=== PATIENT | female | born 1955 | race Native Hawaiian/Other Pacific Islander ===

== ENCOUNTER 2019-07-07 11:51 | Outpatient (CLI) | payer MEDICARE, OTHER, SELFPAY ==
--- NOTE | ~2019-07-07 | DEXA_ITS ---
Bone Density Report Name: Flavia Beltran Age: 64 Sex: Female Ethnicity: Date of : 1955 Indication: postmenopausal; Referring Provider: Marina, Jesus Manuel Study: Bone densitometry was performed. Exam Date: July 07, 2019 Accession number: [id number] Bone Density: Region BMD T-score Z-score Classification AP Spine (L1-L4) 0.712 -3.0 -1.3 Osteoporosis Femoral Neck (Left) 0.576 -2.5 -0.9 Osteoporosis Total Hip (Left) 0.772 -1.4 -0.2 Osteopenia Total Hip Bilateral Avg 0.768 -1.5 -0.2 Osteopenia Femoral Neck (Right) 0.580 -2.4 -0.9 Osteopenia Total Hip (Right) 0.762 -1.5 -0.2 Osteopenia World Health Organization criteria for BMD impression classify patients as: Normal (T-score at or above -1.0), Osteopenia (T-score between -1.0 and -2.5), or Osteoporosis (T-score at or below -2.5). 10-year Fracture Risk: FRAX not reported because: Some T-score for Spine Total or Hip Total or Femoral Neck at or below -2.5 Clinical Information Provided by Patient: Has used the following medications: Vitamin D, Calcium Patient maximum height was 60 Menopause Age: 49 Does not regularly consume dairy products Drinks caffeinated beverages Onset of menses at age 13 Number of children 2 Impression: The patient has osteoporosis, based on the Total Spine T-score. Discussion: INCREASED RISK OF FRACTURE. BONE DENSITY IS UNDESIRABLY LOW AT ONE OR MORE SKELETAL SITES, CONSISTENT WITH POSTMENOPAUSAL OSTEOPOROSIS. This patient's lowest T-score meets the World Health Organization's (WHO) criteria for osteoporosis at one or more sites (T-score -2.5 or below). In untreated patients, the risk of osteoporotic fracture increases approximately two-fold for each 1.0 SD decrease in T-score. Low bone density is not the only risk factor for fracture; also consider factors such as patient's age, frailty or poor health, risk of falling, risk of injury, previous osteoporotic fracture, family history of osteoporosis, cigarette smoking, low body weight, etc. Not everyone with low bone mineral density has osteoporosis; osteomalacia and other metabolic bone disorders should also be considered. Patients who have osteoporosis should be evaluated for specific diseases and conditions (secondary causes) that may cause or contribute to bone loss. The [place] [employer]ocrin[employer] (AACE) and National Osteoporosis Foundation (NOF) recommend pharmacologic intervention for all postmenopausal women whose T-score is in this range. The patient should follow a healthful lifestyle (good nutrition with adequate calcium and vitamin D, and appropriate weight-bearing exercise). Follow-Up: Consider a repeat BMD and Vertebral Fracture Assessment (VFA) exam in 2 years or sooner if medically necessary, to reassess this patient's status. Reported by:
== END 2019-07-07 11:52 | disposition home or self-care (01) ==
LOC: ANHIMG 12:07
PROVIDERS: Visit Provider Student in an Organized Health Care Education/Training Program
DX: Z78.0 Asymptomatic menopausal state (principal); M85.89 Other specified disorders of bone density and structure, multiple sites; M81.0 Age-related osteoporosis without current pathological fracture
CPT/HCPCS: 77080

== ENCOUNTER 2020-10-31 09:24 | Outpatient (CLI) | payer MEDICARE, OTHER, SELFPAY ==
--- NOTE | ~2020-10-31 | MM_ITS ---
EXAMINATION: MM screening rod BI w thuy HISTORY: Screening mammogram, family history of breast cancer in her sister. TECHNIQUE: Craniocaudal and mediolateral oblique 3-D tomosynthesis images were obtained and synthetic 2-D images were generated. CAD analysis was submitted and interpreted. COMPARISON: No prior mammogram is available for comparison at this institution. BREAST PARENCHYMAL COMPOSITION: The breasts are heterogeneously dense, which may obscure small masses . FINDINGS: There is no evidence of suspicious mass, calcification, or architectural distortion to sugg est malignancy in either breast. IMPRESSION: 1. No mammographic evidence of malignancy. 2. Recommend routine screening mammography in one year. BI-RADS Category 1: Negative Reviewed, dictated and finalized at location A.
== END 2020-10-31 09:25 | disposition home or self-care (01) ==
LOC: ANHIMG 09:27
PROVIDERS: PCP Student in an Organized Health Care Education/Training Program; Visit Provider Student in an Organized Health Care Education/Training Program
DX: Z12.31 Encounter for screening mammogram for malignant neoplasm of breast (principal)
CPT/HCPCS: 77063; 77067

== ENCOUNTER 2021-12-19 17:10 | Outpatient (CLI) | payer MEDICARE, OTHER, SELFPAY ==
--- NOTE | ~2021-12-19 | DEXA_ITS ---
Bone Density Report Name: MAGDALENA SANCHEZ Age: 66 Sex: Female Ethnicity: Date of : 1955 Indication: postmenopausal; screening for osteoporosis; height loss; Referring Provider: CHEPE, LEDY Study: Bone densitometry was performed. Exam Date: December 19, 2021 Accession number: [id number] Bone Density: Region BMD T-score Z-score Classification AP Spine(L1-L4) 0.821 -2.1 -0.1 Osteopenia Femoral Neck (Left) 0.591 -2.3 -0.7 Osteopenia Total Hip (Left) 0.774 -1.4 0.0 Osteopenia Femoral Neck (Right) 0.579 -2.4 -0.8 Osteopenia Total Hip (Right) 0.785 -1.3 0.1 Osteopenia Total Hip Mean 0.780 -1.4 0.1 Osteopenia World Health Organization criteria for BMD impression classify patients as: Normal (T-score at or above -1.0), Osteopenia (T-score between -1.0 and -2.5), or Osteoporosis (T-score at or below -2.5). 10-year Fracture Risk(1): Major Osteoporotic Fracture 7.3% Hip Fracture 1.5% Reported Risk Factors: [place] (), Neck BMD=0.579, BMI=24.6 (1) FRAX(R) Version 3.08. Fracture probability calculated for an untreated patient. Fracture probability may be lower if the patient has received treatment. Clinical Information Provided by Patient: Has used the following medications: Vitamin D, Calcium Patient maximum height was 61 Menopause Age: 49 Drinks caffeinated beverages Onset of menses at age 16 Number of children 2 Impression: The patient has low bone mass, based on the Right Femoral Neck T-score. The patient has an estimated ten-year risk of hip fracture of 1.5% and an estimated ten-year risk of major fracture of 7.3%, based on the WHO FRAX algorithm. Discussion: BONE DENSITY IS LOW AT ONE OR MORE SKELETAL SITES. This patient's lowest T-score is low at one or more skeletal sites. It meets the World Health Organization's (WHO) criteria for ?low bone mass? (T-score between -1.0 and -2.5). The patient's 10-year risk of fracture as calculated by FRAX is less than the threshold where pharmacological therapy is recommended by the National Osteoporosis Foundation (NOF). However, all treatment decisions require clinical judgment and consideration of individual patient factors, including patient preferences, comorbidities, previous drug use, risk factors not captured in the FRAX model (e.g., frailty, falls, vitamin D deficiency, increased bone turnover, interval significant decline in bone density) and possible under or overestimation of fracture risk by FRAX. The patient should follow a healthful lifestyle (good nutrition with adequate calcium and vitamin D, and appropriate weight-bearing exercise). Follow-Up: Consider repeating this study in 2 to 3 years to reassess this patient's status, or sooner if there is some new clinical indication. Reported by: DAKOTAH on
--- NOTE | ~2021-12-19 | MM_ITS ---
EXAMINATION: MM screening rod BI w thuy HISTORY: Screening TECHNIQUE: Craniocaudal and mediolateral oblique 3-D tomosynthesis images were obtained and synthetic 2-D images were generated. CAD analysis was submitted and interpreted. COMPARISON: 10/31/2020 BREAST PARENCHYMAL COMPOSITION: There are scattered areas of fibroglandular density. FINDINGS: There is no evidence of suspicious mass, calcification, or architectural distortion to sugg est malignancy in either breast. There has been no suspicious interval change. IMPRESSION: 1. No mammographic evidence of malignancy. 2. Recommend routine screening mammography in one year. BI-RADS Category 1: Negative Reviewed, dictated and finalized at location A.
== END 2021-12-19 17:11 | disposition home or self-care (01) ==
LOC: ANHIMG 17:11
PROVIDERS: PCP Student in an Organized Health Care Education/Training Program; Visit Provider Student in an Organized Health Care Education/Training Program
DX: Z12.31 Encounter for screening mammogram for malignant neoplasm of breast (principal); M81.0 Age-related osteoporosis without current pathological fracture; M85.88 Other specified disorders of bone density and structure, other site; M85.852 Other specified disorders of bone density and structure, left thigh; M85.851 Other specified disorders of bone density and structure, right thigh
CPT/HCPCS: 77063; 77067; 77080

== ENCOUNTER 2023-05-13 08:55 | Outpatient (CLI) | payer MEDICARE, OTHER, SELFPAY ==
--- NOTE | ~2023-05-13 | MM_ITS ---
EXAMINATION: MM screening rod BI w thuy HISTORY: Screening mammogram TECHNIQUE: Craniocaudal and mediolateral oblique 3-D tomosynthesis images were obtained and synthetic 2-D images were generated. CAD analysis was submitted and interpreted. COMPARISON: 12/19/2021, 10/31/2020 bilateral screening mammogram examinations BREAST PARENCHYMAL COMPOSITION: The breasts are heterogeneously dense, which may obscure small masses . FINDINGS: There is no evidence of suspicious mass, calcification, or architectural distortion to sugg est malignancy in either breast. There has been no suspicious interval change. IMPRESSION: 1. No mammographic evidence of malignancy. 2. Recommend routine screening mammography in one year. BI-RADS Category 1: Negative Reviewed, dictated and finalized at location A. [facility] DIRECTOR
== END 2023-05-13 08:56 | disposition home or self-care (01) ==
LOC: ANHIMG 08:57
PROVIDERS: PCP Student in an Organized Health Care Education/Training Program; Visit Provider Student in an Organized Health Care Education/Training Program
DX: Z12.31 Encounter for screening mammogram for malignant neoplasm of breast (principal)
CPT/HCPCS: 77063; 77067

== ENCOUNTER 2023-12-23 13:39 | Outpatient (CLI) | payer MEDICARE, OTHER, SELFPAY ==
--- NOTE | ~2023-12-23 | DEXA_ITS ---
Bone Density Report Name: MAGDALENA SANCHEZ Age: 68 Sex: Female Ethnicity: Date of : 1955 Indication: osteopenia; height loss; Referring Provider: CHEPE, LEDY Study: Bone densitometry was performed. Exam Date: December 23, 2023 Accession number: [id number] Bone Density: Region BMD T-score Z-score Classification AP Spine(L1-L4) 0.866 -1.6 0.4 Osteopenia Femoral Neck (Left) 0.591 -2.3 -0.6 Osteopenia Total Hip (Left) 0.756 -1.5 0.0 Osteopenia Femoral Neck (Right) 0.629 -2.0 -0.2 Osteopenia Total Hip (Right) 0.824 -1.0 0.5 Normal Total Hip Mean 0.790 -1.3 0.3 Osteopenia World Health Organization criteria for BMD impression classify patients as: Normal (T-score at or above -1.0), Osteopenia (T-score between -1.0 and -2.5), or Osteoporosis (T-score at or below -2.5). 10-year Fracture Risk(1): Major Osteoporotic Fracture 7.3% Hip Fracture 1.6% Reported Risk Factors: [place] (), Neck BMD=0.591, BMI=25.6 (1) FRAX(R) Version 3.08. Fracture probability calculated for an untreated patient. Fracture probability may be lower if the patient has received treatment. Previous Exams: Region Exam Age BMD T-score BMD Change BMD Change Date g/cm2 vs Baseline vs Previous AP Spine (L1-L4) 12/23/2023 68 0.866 -1.6 0.153 (21.5%)# 0.044 (5.4%)* 12/19/2021 66 0.821 -2.1 0.109 (15.3%)# 0.109 (15.3%)# 07/07/2019 64 0.712 -3.0 Total Hip(Left) 12/23/2023 68 0.756 -1.5 -0.016 (-2.0%) -0.018 (-2.3%) 12/19/2021 66 0.774 -1.4 0.002 (0.3%) 0.002 (0.3%) 07/07/2019 64 0.772 -1.4 Total Hip(Right) 12/23/2023 68 0.824 -1.0 0.062 (8.1%)* 0.039 (4.9%)* 12/19/2021 66 0.785 -1.3 0.023 (3.0%) 0.023 (3.0%) 07/07/2019 64 0.762 -1.5 *Denotes significance at 95% confidence level, LSC for AP Spine = 0.022 g/cm2, LSC for Total Hip = 0.027 g/cm2 # Denotes dissimilar scan types or analysis methods Clinical Information Provided by Patient: Has used the following medications: Vitamin D, Calcium Patient maximum height was 62.0 Menopause Age: 49 Drinks caffeinated beverages Onset of menses at age 14 Number of children 2 Impression: The patient has low bone mass, based on the Left Femoral Neck T-score. The patient has an estimated ten-year risk of hip fracture of 1.6% and an estimated ten-year risk of major fracture of 7.3%, based on the WHO FRAX algorithm. No significant bone loss was o
== END 2023-12-23 13:40 | disposition home or self-care (01) ==
LOC: ANHIMG 13:41
PROVIDERS: PCP Student in an Organized Health Care Education/Training Program; Visit Provider Student in an Organized Health Care Education/Training Program
DX: M85.89 Other specified disorders of bone density and structure, multiple sites (principal); Z78.0 Asymptomatic menopausal state
CPT/HCPCS: 77080

== ENCOUNTER 2024-12-10 09:01 | Outpatient (CLI) | payer MEDICARE, OTHER, SELFPAY ==
--- NOTE | ~2024-12-10 | MM_ITS ---
EXAMINATION: MM screening rod BI w thuy HISTORY: Screening TECHNIQUE: Craniocaudal and mediolateral oblique 3-D tomosynthesis images were obtained and synthetic 2-D images were generated. CAD analysis was submitted and interpreted. COMPARISON: Comparison to multiple prior studies sequentially, with oldest reviewed study dated 10/31. BREAST PARENCHYMAL COMPOSITION: Not dense: There are scattered areas of fibroglandular density. FINDINGS: There is no evidence of suspicious mass, calcification, or architectural distortion to sugg est malignancy in either breast. There has been no suspicious interval change. IMPRESSION: 1. No mammographic evidence of malignancy. 2. Recommend routine screening mammography in one year. BI-RADS Category 1: Negative Reviewed, dictated and finalized at location A.
--- OUTSIDE RECORDS SUMMARY | 2024-12-10 09:04 | XMS_ITS | Encounter Summary ---
Author Organization [facility] Address [address] [place] [id number] Care Team Providers Care Material Yard Clerk Name Role Phone Jesus Manuel Arriaga DO Primary Care Provider + Encounter Details Date Type Department Care Team (Latest Contact Info) Description 11/24/2024 Scan HEALTH INFO [facility] Scanned, Doc Med Group Social History Tobacco Use Types Packs/Day Years Used Date Smoking Tobacco: Never Smokeless Tobacco: Never Comments:No counseling requi red. Alcohol Use Standard Drinks/Week Comments Not Currently 0 (1 standard drink = 0.6 oz pur e alcohol) AUDIT-C Answer Date Recorded Frequency of Alcohol Consumption Monthly or less 06/02/2019 Average Number of Drinks 1 or 2 020 Frequency of Binge Drinking Never 05/18 PHQ-2 Answer Date Recorded Patient Health Questionnaire-2 Score 0 09/01/2024 Comments No Sex and Gender Information Value Date Recorded Sex Assigned at Female 09/01/2024 1:09 PM CDT Legal Sex Female 7:20 PM CDT Gender Identity Female 09/01/2024 1:09 PM CDT Sexual Orientation Not on file documented as of this encounter Plan of Treatment Upcoming Encounters Date Type Department Care Team (Late st Contact Info) Description 01/05/2025 8:00 AM CDT Laboratory Only [facility] Family & Internal Medicine [address] [phone] Jesus Manuel Arriaga DO [facility] [place] [address] 01/12/2025 8:00 AM CDT Office Visit [facility] Family & Internal Medicine - [address] [phone] Jesus Manuel Arriaga DO [address] [place] [id number] documented as of this encounter Visit Diagnoses Not on filedocumented in this encounter Additional Health Concerns Assessment Noted Time PHQ-9 Depression Total Score: 0 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
--- OUTSIDE RECORDS SUMMARY | 2024-12-10 09:04 | XMS_ITS | Clinical Summary ---
Author Organization [facility] Address [address] [place] [address] Care Team Providers Care Vp Account Director Name Role Phone Jesus Manuel Arriaga DO Primary Care Provider + Allergies No known active allergies Medications aspirin EC (ASPIRIN EC) 81 MG tabletIndication s:Type 2 diabetes mellitus without complication, without long-term current use of insulin ([facility]) Take 1 tablet (81 mg total) by mouth daily. 90 tablet 1 07/12/19 21 Active Cholecalciferol (VITAMIN D) 125 MCG (5000 UT) Cap Take 1 capsule by mouth daily. 05/23/19 22 Active calcium carb-cholecalcif david (CALTRATE+D) 600-10 MG-MCG Tab tablet 1 tablet daily. Act zion SODIUM FLUORIDE 5000 PPM 1.1 % Paste see administration instructions. 08/26/19 25 Active SITagliptin-metF ORMIN HCl (JANUMET) 50-1000 MG TabIndications:T ype 2 diabetes mellitus without complication, without long-term current use of insulin ([facility]) Take 1 tablet by mouth 2 (two) times daily with meals. 180 tablet 3 09/02/19 25 Active omeprazole (PRILOSEC) 40 MG capsuleIndicatio ns:Gastroesophag eal reflux disease, unspecified whether esophagitis present Take 1 capsule (40 mg total) by mouth daily. 90 capsule 3 09/02/19 25 Active lisinopril (PRINIVIL) 20 MG tabletIndication s:Primary hypertension Take 1 tablet (20 mg total) by mouth daily. 90 tablet 3 09/02/19 25 Active empagliflozin (JARDIANCE) 10 MG tabletIndication s:Type 2 diabetes mellitus without complication, without long-term current use of insulin ([facility]) Take 1 tablet (10 mg total) by mouth daily. 90 tablet 3 09/02/19 25 Active atorvastatin (LIPITOR) 80 MG tabletIndication s:Type 2 diabetes mellitus without complication, without long-term current use of insulin ([facility]) Take 1 tablet (80 mg total) by mouth nightly at bedtime. 90 tablet 3 09/02/19 25 Active alendronate (FOSAMAX) 70 MG tabletIndication s:Age-related osteoporosis without current pathological fracture Take 1 tablet (70 mg total) by mouth every 7 days. 12 tablet 3 09/02/19 25 Active meloxicam (MOBIC) 15 MG tabletIndication s:Chronic left shoulder pain,Chronic elbow pain, left Take 1 tablet (15 mg total) by mouth daily. 30 tablet 2 09/02/19 25 Active FREESTYLE LITE test stripIndications :Type 2 diabetes mellitus without complication, without long-term current use of insulin ([facility]) USE TO TEST ONCE DAILY 100 strip 1 11/16/19 25 Active FREESTYLE LITE test stripIndications :Type 2 diabetes mellitus without complication, without long-term current use of insulin ([facility]) USE TO TEST ONCE DAILY 100 strip 1 04/28/20 24 025 Discontin ued(Reord er) Active Problems Problem Noted Date Diagnosed Date Hansen's esophagus 07/02/2023 Screening for colon cancer 02/09/2023 Overview (02/09/2023): Added automatically from request for surgery [id number] Age-related osteoporosis wit hout current pathological fracture 07/12/2020 Myalgia 06/02/2019 Pure hypercholesterolemia 10/01/2013 Overview (07/12/2020): PURE HYPERCHOLESTEROLEM Type 2 diabetes mellitus ([facility]) Hypertension GERD (gastroesophageal reflux disease) Resolved Problems Problem Noted Date Diagnosed Date Resolved Date Lumbar radiculopathy 07/02/2023 024 Vitamin D deficiency 07/02/2023 024 Encounters Date Type Department Care Team Description 11/24/2024 Scan HEALTH INFO SRVCS Scanned, [facility] 11/15/[address] [address] Jesus Manuel Arriaga, DO Medication Request 10/13/2024 8:20 AM CDT Office Visit [address] [address] Jesus Manuel Arriaga, DO Shoulder Pain (The patient states she feels the left shoulder pain is improving. ); Lab Results (The patient also presents for follow up on lab results. ) 10/13/2024 Travel 10/06/2024 8:20 AM CDT Laboratory Only [address] [address] Jesus Manuel Arriaga, 10/06/2024 - 10/06/2024 11:59 PM CDT Hospital Encounter [facility] [address] [place] [address] Jesus Manuel Arriaga, DO Discharge Disposition: Home or Self Care (Routine Discharge) 10/06/2024 Travel 09/26/2024 Scan HEALTH INFO SRVCS Scanned, [facility] 09/19/2024 Scan HEALTH INFO SRVCS Scanned, [facility] from Last 3 Months Immunizations Immunization Administration Dates Next Due Fluzone 6 Months+ Quad (0.5 mL Prefilled Syringe) 03/04/2019 Fluzone High Dose (IIV, triv alent, 0.5mL) 02/18/2024 Fluzone High Dose - >Age 65 (Prefilled Syringe) 05/22/2023,02/27/2022,02/20/2020 Influenza Adult (Generic) 05/22/2023,,2021,2018 PFIZER COVID-19 (ORIGINAL FORMULATION, PURPLE CAP) mRNA, LNP-S, PF, 30 MCG/0.3 ML DOSE 2021,08/20/2020,07/27/2020 Pneumococcal (Pneumovax 23) 01/22/2021 Pneumococcal (Prevnar 13) 06/02/2019 Tdap (Boostrix) 06/02/2019 Social History Tobacco Use Types Packs/Day Years Used Date Smoking Tobacco: Never Smokeless Tobacco: Never Tobacco Cessation:Counseling Given: Yes Comments:No counseling required. Alcohol Use Standard Drinks/Week Comments Not Currently [...] PM CDT Sexual Orientation Not on file Last Filed Vital Signs Vital Sign Reading Time Taken Comments Blood Pressure 102/56 10/13/2024 8:25 AM CDT Pulse 102 10/13/2024 8:25 AM CDT Temperature 36.6 C (97.9 F) 10/13/2024 8:25 AM CDT Respiratory Rate 16 10/13/2024 8:25 AM CDT Oxygen Saturation 97% 10/13/2024 8:25 AM CDT Inhaled Oxygen Concentration - - Weight 59.1 kg (130 lb 3.2 oz) 10/13/2024 8:25 A M CDT Height 152.4 cm (5') 10/13/2024 8:25 AM CDT Body Mass Index 25.43 10/13/2024 8:25 AM CDT Plan of Treatment Upcoming Encounters Date Type Department Care Team (Late st Contact Info) Description 01/05/2025 8:00 AM CDT Laboratory Only [facility] Medical [facility] Family & Internal Medicine [address] [phone] Jesus Manuel Arriaga DO [address] [place] [phone] 01/12/2025 8:00 AM CDT Office Visit [facility] [place] [id number] [place] [address] Jesus Manuel Arriaga, [address] [place] [phone] Health Maintenance Due Date Last Done Comments Diabetes: Retinopathy Eye Exam 11/06/2016 11/06/2014 EGD-Hansen's Surveillance 03/29/2018 03/29/2015, Annual Medicare Wellness Visit 2019 Mammogram Screening 05/13/2024 05/13/2023, 12/19/2021, 10/31/2020, Additional history exists COVID-19 Vaccine ( season) 2025 05/22/2023, 2021, 08/20/2020, Additional history exists Postponed from 01/17/2024 (Going to Outside Clinic) Hemoglobin A1C 03/03/2025 09/01/2024, 07/2023, 10/05/2023, Additional history exists Kidney Health Evaluation 08/25/2025 08/25/2024 Lipid Panel 08/25/2025 08/25/2024, 12/2023, 08/08/2021, Additional history exists Zoster Vaccines (1 of 2) 09/01/2025 Pos tponed from 2004 (Going to Outside Clinic) RSV Immunization or 60+ Years (1 - 1-dose 75+ series) 2029 DTaP, Tdap and Td Vaccines (2 - Td or Tdap) 06/02/2029 06/02/2019 Colorectal Cancer Screening Colonoscopy (10 Years) 02/20/2033 02/20/2023 Pneumococcal Vaccine: 50+ Years Completed 01/22/2021, 06/02/2019 Hepatitis C Completed 06/25/2023 Dexa Scan (General) Completed 12/23/2023, 12/19/2021, 12/19/2021, Additional history exists PHQ-2 (Physician [place]) Completed 09/01/2024 Meningococcal B Vaccine Aged Out No l onger eligible based on patient's age to complete this topic Meningococcal Vaccine Aged Out No beck fany eligible based on patient's age to complete this topic RSV Immunizations Under 20 Months Aged Out No longer eligible based on patient's age to complete this topic Procedures Procedure Name Priority Date/Time Associated Diagnosis Comments COLLECTION VENOUS BLOOD VENIPUNCTURE Routine 10/06/2024 8:28 AM CDT Anemia, unspecified type FOLIC ACID SERUM Routine 10/06/2024 8:28 AM CDT Anemia, unspecified type SOLUBLE TRANSFERRIN RECEPTOR Routine 10/06/2024 8:18 AM CDT Anemia, unspecified type CBC W/DIFF AUTOMATED Routine 10/06/2024 8:18 AM CDT Anemia, unspecified type VITAMIN B-12 Routine 10/06/2024 8:18 AM CDT Anemia, unspecified type RETICULOCYTE CT, AUTO Routine 10/06/2024 8:18 AM CDT Anemia, unspecified type HAPTOGLOBIN, QUANT Routine 10/06/2024 8: 18 AM CDT Anemia, unspecified type LDH, LACTATE DEHYDROGENASE Routine 10/06/2024 8:18 AM CDT Anemia, unspecified type FERRITIN Routine 10/06/2024 8:18 AM CDT Anemia, unspecified type IRON SAT PANEL (IRON,IBC,%SAT) Routine 10/06/2024 8:18 AM CDT Anemia, unspecified type HEMOGLOBIN, GLYCOSYLATED Routine 09/01/2024 Type 2 diabetes mellitus without complication, without long-term current use of insulin (CMS/HCC HHS/HCC) LIPID PANEL Routine 08/25/2024 7:57 AM CDT Type 2 diabetes mellitus without complication, without long-term current use of insulin (CMS/HCC HHS/HCC) Primary hypertension Pure hypercholesterolemia BONE DENSITY GENERIC (SCAN ORDER) 12/23/2023 HEPATITIS C ANTIBODY Routine 06/25/2023 1:11 PM 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 Co de Phone Number [facility] [address] [place] [address], * (ABNORMAL) SOLUBLE TRANSFERRIN RECEPTOR (10/06/2024 8:18 AM CDT) SOLUBLE TRANSFERRIN RECEPTOR 3.00(H) 0.76 - 1.76 mg/L [employer] [facility] 10/06/2024 8:18 AM CDT 10/07/2024 7:13 AM CDT Narrative Resulting Agency Comment Performing Organization Information: Site ID: [id number] Name: [facility], Address: [address] [place] [id number] Director: Eloina Rogel MD,PhD,FRANCISCA us Jesus Manuel Arriaga DO LABORATORY Final Re sult [facility] [address] [address], [place] * IRON SAT PANEL (IRON,IBC,%SAT) (10/06/2024 8:18 AM CDT) IRON 65 50 - 170 MCG/DL 10/06/2024 3:49 PM CDT [facility] IRON BINDING CAPACITY 429 250 - 450 MCG/DL 10/06/2024 3:49 PM CDT [facility] IRON SATURATION 15 % 3:49 PM CDT [facility] Comment:REFERENCE RANGE NOT ESTABLISHED 10/06/2024 8:18 AM CDT Jesus Manuel Arriaga DO LABORATORY Final Re sult Performing Organization Address [facility]/ZIP Co de Phone Number [address] [address], [place] [phone] * VITAMIN B-12 (10/06/2024 8:18 AM CDT) VITAMIN B12 S/P/B 346 193 - 986 PG/ML 10/06/2024 3:49 PM CDT [facility] 10/06/2024 8:18 AM CDT Jesus Manuel Arriaga DO LABORATORY Final Re sult Performing Organization Address City/[facility]/ZIP Co de Phone Number [address] [address], [place] [phone] * (ABNORMAL) RETICULOCYTE CT, AUTO (10/06/2024 8:18 AM CDT) RETICULOCYTE COUNT 3.3(H) 0.6 - 2.3 % 10/06/2024 5:36 PM CDT [facility] ABSOLUTE RETICULOCYTE 0.15(H) 0.02 - 0.10 x10'6/uL 10/06/2024 5:36 PM CDT [facility] IMMATURE RETIC FRACTION 18.9(H) 3.0 - 15.9 % 10/06/2024 5:36 PM CDT [facility] RETIC HGB 29.1 28.0 - 35.0 PG 10/06/2024 5:36 PM CDT [facility] 10/06/2024 8:18 AM CDT Jesus Manuel Arriaga DO LABORATORY Final Re sult Performing Organization Address [facility] Co de Phone Number [facility] [address] [place] [address], [place] [phone] * HAPTOGLOBIN, QUANT (10/06/2024 8:18 AM CDT) HAPTOGLOBIN 161.0 30.0 - 200.0 MG/DL 10/06/2024 5:42 PM CDT [facility] 10/06/2024 8:18 AM CDT Jesus Manuel Arriaga DO LABORATORY Final Re sult Performing Organization Address [facility] de Phone Number [facility] [address] [place] [address], [place] [phone] * LDH, LACTATE DEHYDROGENASE (10/06/2024 8:18 AM CDT) LDH 179 84 - 246 UNITS/L 10/06/2024 5:41 PM CDT [facility] 10/06/2024 8:18 AM CDT Jesus Manuel Arriaga DO LABORATORY Final Re sult Performing Organization Address [facility] Co de Phone Number [facility] [address] [place] [address], [place] [phone] * (ABNORMAL) CBC W/DIFF AUTOMATED (10/06/2024 8:18 AM CDT) [facility] WBC 5.55 4.00 - 10.80 x10'3/uL 10/06/2024 3:21 PM CDT [facility] RBC 4.72 4.10 - 5.40 x10'6/uL 10/06/2024 3:21 PM CDT [facility] HGB 12.7 12.0 - 16.0 G/DL 10/06/2024 3:21 PM CDT [facility] HCT 41.7 36.0 - 47.0 % 10/06/2024 3:21 PM CDT [facility] MCV 88.3 78.0 - 100.0 FL 10/06/2024 3:21 PM CDT [facility] MCH 26.9(L) 27.0 - 31.0 PG 10/06/2024 3:21 PM CDT [facility] MCHC 30.5(L) 33.0 - 36.0 G/DL 10/06/2024 3:21 PM CDT [facility] RDW 12.2 11.5 - 14.5 % 10/06/2024 3:21 PM CDT [facility] PLT 261 150 - 350 x10'3/uL 10/06/2024 3:21 PM CDT [facility] MPV 11.3(H) 7.4 - 10.4 FL 10/06/2024 3:21 PM CDT [facility] DIFFERENTIAL TYPE AUTOMATED DIFFERENTIAL 10/06/2024 3:21 PM CDT [facility] NEUTROPHILS % 60.0 % 10/06/2024 3:21 PM CDT [facility] LYMPHOCYTES % 30.5 % 10/06/2024 3:21 PM CDT [facility] MONOCYTES % 7.0 % 10/06/2024 3:21 PM CDT [facility] EOSINOPHILS % 1.6 % 10/06/2024 3:21 PM CDT [facility] BASOPHILS % 0.7 % 10/06/2024 3:21 PM CDT [facility] IMMATURE GRANS % 0.2 % 10/06/2024 3:21 PM CDT [facility] ABS. NEUTROPHILS 3.33 1.60 - 8.30 x10'3/uL 10/06/2024 3:21 PM CDT -[facility] ABS. LYMPHOCYTES 1.69 0.80 - 4.70 x10'3/uL 10/06/2024 3:21 PM CDT [facility] ABS. MONOCYTES 0.39 0.00 - 1.50 x10'3/uL 10/06/2024 3:21 PM CDT [facility] ABS. EOSINOPHILS 0.09 0.00 - 0.40 x10'3/uL 10/06/2024 3:21 PM CDT -[facility] ABS. BASOPHILS 0.04 0.00 - 0.20 x10'3/uL 10/06/2024 3:21 PM CDT [facility] ABS. IMMATURE GRANULOCYTES 0.01 0.00 - 0.03 x10'3/uL 10/06/2024 3:21 PM CDT [facility] 10/06/2024 8:18 AM CDT us Jesus Manuel Arriaga DO LABORATORY Final Re sult [facility] [address] [place] [address], [place] [phone] * FERRITIN (10/06/2024 8:18 AM CDT) [facility] FERRITIN 25.0 8 - 252 NG/ML 10/06/2024 3:49 PM CDT [facility] 10/06/2024 8:18 AM CDT Jesus Manuel Arriaga DO LABORATORY Final Re sult [facility] [address] [place] [address], * HEMOGLOBIN, GLYCOSYLATED (09/01/2024) HGB A1C 7.3 % [facility] 09/01/2024 Jesus Manuel Arriaga DO LABORATORY Final Re sult Performing Organization Address City/[facility]/ZIP Co de Phone Number [facility] [address] [place] [address], [place] * LIPID PANEL (08/25/2024 7:57 AM CDT) CHOLESTEROL 142 <200 MG/DL 08/25/2024 3:48 PM CDT [facility] TRIGLYCERIDES 55 <150 MG/DL 08/25/2024 3:48 PM CDT [facility] HDL 63 >40 MG/DL 08/25/2024 3:48 PM CDT [facility] LDL-C 68 <100 MG/DL 08/25/2024 3:48 PM CDT [facility] VLDL CALCULATION 11 5 - 28 MG/DL 08/25/2024 3:48 PM CDT [facility] CHOL/HDL RATIO 2.3 0.0 - 4.0 08/25/2024 3:48 PM CDT [facility] LDL/HDL 1.1 0.41 - 2.13 08/25/2024 3:48 PM CDT [facility] NON HDL CHOLESTEROL 79 <140 MG/DL 08/25/2024 3:48 PM CDT [facility] 08/25/2024 7:57 AM CDT Jesus Manuel Arriaga DO LABORATORY Final Re sult Performing Organization Address City/[facility]/ZIP Co de Phone Number -[employer] [address] [facility] [place] [address], [place] [phone] * BONE DENSITY GENERIC (SCAN ORDER) (12/23/2023) Anatomical Region Laterality Modality Other 12/23/2023 [facility] Scanned SCANNING Final Resu lt * HEPATITIS C ANTIBODY ([facility] ONLY) (06/25/2023 1:11 PM PROFESSOR 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 DOES NOT EXCLUDE THE POSSIBILITY OF EXPOSURE TO HCV. 06/25/2023 1:11 PM PROFESSOR OF ENVIRONMENTAL STUDIES Result [facility] Jesus Manuel Arriaga DO LABORATORY Final Re sult Performing Organization Address [facility] Co de Phone Number [facility] [address] [place] [address], [place] [phone] * MAMMOGRAM GENERIC (05/13/2023) Anatomical Region Laterality Modality Other 05/13/2023 [facility] Scanned SCANNING Final Resu lt * ENDOSCOPY (03/29/2015) 03/29/2015 Narrative 03/29/2015 Ordered by an unspecified provider. Documents Scanned SCANNING Final Result * DIABETIC RETINOPATHY EXAM (11/06/2014) 11/06/2014 us Documents Scanned SCANNING Edited Result - Final [facility] from Last 3 Months or Most Recently Relevant to Health Maintenance Insurance MEDICARE [facility] MEDICARE Care Teams Vp Account Director Relationship Specialty Start Date End Date JesusM anuel Arriaga DO [address] [place] [phone] PCP - General FAMILY PRACTICE 04/19/19
--- OUTSIDE RECORDS SUMMARY | 2024-12-10 09:04 | XMS_ITS | Continuity of Care Document ---
Author Organization [facility] Address [address] [place] [address] [address] [place] [address] Phone Care Team Providers Care Laundry Assistant Name Role Phone Gregorio Howell PTA Unavailable Unavailable Procedures Procedure Date Therapeutic Activities Neuromuscular Re-Ed Therapeutic Exercise Therapeutic Activities Neuromuscular Re-Ed Therapeutic Activities Neuromuscular Re-Ed Therapeutic Exercise Therapeutic Activities Neuromuscular Re-Ed Therapeutic Activities Neuromuscular Re-Ed Therapeutic Activities Neuromuscular Re-Ed Therapeutic Activities Neuromuscular Re-Ed Progress Note Therapeutic Activities Neuromuscular Re-Ed Therapeutic Activities Neuromuscular Re-Ed Therapeutic Activities Neuromuscular Re-Ed Therapeutic Activities Neuromuscular Re-Ed Therapeutic Activities Neuromuscular Re-Ed Therapeutic Exercise Therapeutic Activities Neuromuscular Re-Ed Therapeutic Activities Neuromuscular Re-Ed Therapeutic Activities Neuromuscular Re-Ed Therapeutic Activities Neuromuscular Re-Ed Therapeutic Exercise Doc neg elder mal no plan PRES/ABSN URINE INCON ASSESS PT Evaluation Moderate Complexity Therapeutic Activities Neuromuscular Re-Ed Advance Directives Directive Yes / No Effective Date File Name No Information Encounters Encounter Description Practice Location Reason(s) For Visit Diagnoses Date Provider Providers Copied on Encounter [address], [id number], tel:[phone] [place] No Information 5 Lynda Perkins. . Referring Provider: Jesus Manuel Arriaga , [address] [place] [address], [address]. tel:[phone] [place] [address], [id number], tel:[phone] [place] No Information 5 Liam [place], [place]. Referring Provider: Jesus Manuel Arriaga , [address] [place] [address], [address]. tel:[phone] [place] [address], [id number], tel:[phone] [place] No Information 5 Lynda Perkins. . Referring Provider: Jesus Manuel Arriaga , [address] [place] [address], [address]. tel:[phone], [id number], tel:[phone] [place] No Information 5 [place], [place]. Referring Provider: Jesus Manuel Arriaga [address] [place] [address], [address]. tel:[phone], [id number], tel:[phone] [place] No Information 5 Liam Navid. , [place], [place]. Referring Provider: Jesus Manuel Arriaga , [address] [place] [address], [address]. tel:[phone] [place] [address], [id number], tel:[phone] [place] No Information Oct-2 5 Wheeler Navid. , [place], [place]. Referring Provider: Jesus Manuel Arriaga , [address] [place] [address], [address]. tel:[phone] [place] [address], [id number], [place] tel:[phone] [place] No Information Oct-1 5 Wheeler Navid. , [place], [place]. Referring Provider: Jesus Manuel Arriaga , [address] [place] [address], [address]. tel:[phone] [place] [address], [id number], [place] tel:[phone] [place] No Information Oct-1 5 [facility] [place]. Referring Provider: Jesus Manuel Arriaga , [address] [place] [address], [address]. tel:[phone] [place] [address], [id number], [place] tel:[phone] [place] No Information Oct-1 - 5 [facility] , [place]. Referring Provider: Jesus Manuel Arriaga , [address] [place] [address], [address]. tel:[phone] [place] [address], [id number], [place] tel:[phone] [place] No Information Theo-0 5-202 5 Wheeler Navid. , [place], [place]. Referring Provider: Jesus Manuel Arriaga , [address] [place] [address], [address]. tel:[phone] [facility] [address], [id number], [place] tel:[phone] [place] No Information Theo-0 3- 5 Liam Hernandez , [place], [place]. Referring Provider: Jesus Manuel Arriaga , [address] [place] [address], [address]. tel:[phone] [place] [address] [place] [address], [id number], [place] tel:[phone] [place] No Information May-2 9- 5 Ihsan Arauz. . Referring Provider: Jesus Manuel Arriaga , [address] [place] [address], [address]. tel:[phone] [place] [address] [place] [address], [id number], tel:[phone] [place] No Information May-2 7- 5 Lynda Perkins. . Referring Provider: Jesus Manuel Arriaga , [address] [place] [address], [address]. tel:[phone] [place] [address] [place] [address], [id number], tel:[phone] [place] No Information September-2 2- 5 Liam Hernandez , [place], [place]. Referring Provider: Jesus Manuel Arriaga , [address] [place] [address], [address]. tel:[phone] [place] [address], [id number], [place] tel:[phone] [place] No Information September-2 0-202 5 Liam Hernandez , [place], [place]. Referring Provider: Jesus Manuel Arriaga , [address] [place] [address], [address]. tel:[phone] [facility] [address] [place] [address], [id number], [place] tel:[phone] [place] No Information 0 [place]. Referring Provider: Jesus Manuel Arriaga , [address] [place] [address], [place], [address]. tel:[phone] [facility] [address] [facility], [place], [place], [id number], [place] tel:[phone] [place] No Information 0 [place]. Referring Provider: Jesus Manuel Arriaga , [facility], [place], [address]. tel:[phone] Family History Family Member Type Diagnosis Age At Onset No Information Payers Payer name Insurance type Covered republican ID Authoriza tion(s) Medicare [place] [id number] For Life Medicare Se condary Only CI [id number] Social History Type Description Quantity Date Captured Comments Sex Female Smoking Status No Information Chief Complaint And Reason For Visit No Information Reason For Referral Reason For Referral No Information Plan Of Treatment Date Type Action Status Appointment Flavia Call BOOKED History Of Present Illness Encounter Date Complaint History Of Prese nt Illness No Information Functional Status Date Functional Assessmen t No Information Instructions Date Instruction Additional Infor mation No Information Assessments Type Assessment Date No Information Patient Care Teams Name Effective Dates (start - stop) Status Members No Information
== END 2024-12-10 09:02 | disposition home or self-care (01) ==
PROVIDERS: PCP Student in an Organized Health Care Education/Training Program; Visit Provider Student in an Organized Health Care Education/Training Program
DX: Z12.31 Encounter for screening mammogram for malignant neoplasm of breast (principal)
CPT/HCPCS: 77063; 77067